=== PATIENT | female | born 1960 | race Two or more races ===

== ENCOUNTER 2025-07-17 14:37 | Inpatient (IN) | payer OTHER ==
[~2025-07-17] VITALS: Ht 162.6 cm; Wt 79.4 kg
[2025-07-18 12:28] VITALS: BP 133/84
[2025-07-25] MEDS ORDERED: EPINEPHRINE HCL/PF 1 MG/ML AMPUL IJ ONE (10:45)
[2025-07-25] MEDS ORDERED: LIDOCAINE HCL 1%/EPINEPHRINE 20ML VIAL IJ ONE (10:45)
[2025-07-25] MEDS ORDERED: CEFAZOLIN SODIUM 1,000 MG VIAL IV ONE (10:45)
[2025-07-25] MEDS ORDERED: ENOXAPARIN SODIUM 30 MG/0.3 ML SYRINGE SUBCUTANEO ONE (11:00)
[2025-07-25] MEDS ORDERED: SUGAMMADEX SODIUM 200 MG/2 ML VIAL IV ONE (13:08)
[2025-07-25] MEDS ORDERED: ONDANSETRON HCL 2 MG/ML VIAL IV PRN (14:00)
[2025-07-25] MEDS ORDERED: MetFORMIN HCL 500 MG TABLET PO SCH (17:00)
[2025-07-25 21:31] VITALS: BP 139/67; O2SAT 96
[2025-07-26 01:08] VITALS: BP 124/71; O2SAT 95
[2025-07-26] MEDS ORDERED: AMLODIPINE BESYLATE 2.5 MG TABLET PO SCH (07:00)
[2025-07-26] MEDS ORDERED: IRBESARTAN 300 MG TABLET PO SCH (07:00)
[2025-07-26 09:33] VITALS: BP 135/75; O2SAT 98
== END 2025-07-26 11:45 | disposition home or self-care (01) | DRG 572 ==
LOC: ADM 07-18 15:00 → O/R 07-25 06:00 → CIR.AMB 07-25 15:00 → EDSTATUS 07-25 15:00 → SURH 07-25 17:48
PROVIDERS: ADMIT Specialist; ATTEND Specialist
PROC: 0JBM0ZZ Excision of Left Upper Leg Subcutaneous Tissue and Fascia, Open Approach (ICD-10-PCS; 2025-07-25)
PROC: 0JBL0ZZ Excision of Right Upper Leg Subcutaneous Tissue and Fascia, Open Approach (ICD-10-PCS; principal; 2025-07-25 07:00)
DX: L98.7 Excessive and redundant skin and subcutaneous tissue (principal)